=== PATIENT | male | born 1995 | race American Indian/Alaskan Native ===

== ENCOUNTER 2019-08-25 23:00 | Emergency (ER) | payer SELFPAY ==
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
[2019-08-25] MEDS ORDERED: KETOROLAC 30 MG/1 ML INJ IV ONE (23:21)
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
--- NOTE | 2019-08-26 00:44 | XRay Report ---
LEFT SHOULDER 2 VIEW(S) INDICATION / CLINICAL INFORMATION: left shoulder pain COMPARISON: None available. FINDINGS: BONES / JOINT(S): No acute fracture or subluxation. No significant arthritis. SOFT TISSUES: No significant abnormality. ADDITIONAL FINDINGS: None. Signer Name: Jenna Herbert MD Signed: 08/26/2019 12:40 AM Workstation Name: [email or web address]
[2019-08-26 00:45] VITALS: BP 135/86
== END 2019-08-26 00:10 | disposition home or self-care (01) ==
LOC: ED 23:00
DX: M25.512 Pain in left shoulder (principal)
CPT/HCPCS: 73030; 73070; 96374; 99284; J1885